=== PATIENT | male | born 1960 | race African-American/Black ===

== ENCOUNTER 2024-03-07 11:12 | Emergency (ER) | payer OTHER ==
[~2024-03-07] VITALS: Ht 175.3 cm; Wt 68.2 kg
[2024-03-07 11:13] VITALS: BP 123/75; PULSE 83; RESP 18; TEMP 98.7
[2024-03-07 12:27] LABS: COVID AG,FIA SOURCE NASAL SWAB
[2024-03-07 12:54] LABS: SARS-COV2 (COVID) ANTIGEN,FIA Negative (Negative)
[2024-03-07 12:55] LABS: INFLUENZA TYPE A NEGATIVE FOR TYPE A (NEGATIVE); INFLUENZA TYPE B NEGATIVE FOR TYPE B (NEGATIVE)
[2024-03-07 12:56] LABS: RAPID GROUP A STREP NEGATIVE (NEGATIVE)
[2024-03-07] MEDS ORDERED: IBUP-1554 PO (13:41)
[2024-03-07] MEDS ORDERED: ACET-2080 PO (13:41)
[2024-03-07] MEDS ORDERED: CEPH-558 PO (13:41)
[2024-03-07] MEDS: LIDOCAINE 2% VISCOUS 15 ML SOLUTION UDCUP PO ONE (13:49)
[2024-03-07] MEDS: ACETAMINOPHEN/CODEINE 300-30 MG TABLET PO ONE (13:49)
== END 2024-03-07 13:59 | disposition home or self-care (01) ==
LOC: EMS 11:12
DX: J02.9 Acute pharyngitis, unspecified (principal); F17.210 Nicotine dependence, cigarettes, uncomplicated; Z20.822 Contact with and (suspected) exposure to COVID-19
CPT/HCPCS: 87430; 87804; 99283

== ENCOUNTER 2025-01-12 18:45 | Emergency (ER) | payer OTHER ==
[~2025-01-12] VITALS: Ht 175.3 cm; Wt 68.2 kg
[~2025-01-12 18:45] MED LIST: ACET-2080 PO; CEPH-558 PO; IBUP-1554 PO
[2025-01-12 19:20] VITALS: BP 127/62; PULSE 86; RESP 16; TEMP 98.2; O2SAT 97
[2025-01-12 19:43] LABS: COVID AG,FIA SOURCE NASAL SWAB
[2025-01-12 20:07] LABS: SARS-COV2 (COVID) ANTIGEN,FIA Negative (Negative)
[2025-01-12 20:09] LABS: INFLUENZA TYPE A NEGATIVE FOR TYPE A (NEGATIVE); INFLUENZA TYPE B NEGATIVE FOR TYPE B (NEGATIVE)
[2025-01-12] MEDS ORDERED: DOXY-354 PO (20:49)
[2025-01-12] MEDS ORDERED: BENZ-227 PO (20:50)
[2025-01-12] MEDS: DOXYCYCLINE HYCLATE 100 MG TABLET PO ONE (20:54)
== END 2025-01-12 21:42 | disposition home or self-care (01) ==
LOC: EMS 18:45
DX: L03.012 Cellulitis of left finger (principal); J40 Bronchitis, not specified as acute or chronic; F17.210 Nicotine dependence, cigarettes, uncomplicated; Z20.822 Contact with and (suspected) exposure to COVID-19
CPT/HCPCS: 10060; 87804; 99283